=== PATIENT | female | born 2000 | race African-American/Black ===

== ENCOUNTER 2023-05-29 03:55 | Emergency (ER) | payer SELFPAY ==
[~2023-05-29] VITALS: Ht 165.1 cm; Wt 69.9 kg
[2023-05-29 04:01] VITALS: BP 117/66; PULSE 75; RESP 16; TEMP 98.5; O2SAT 99
[2023-05-29 05:01] VITALS: BP 101/62; PULSE 70; RESP 16; O2SAT 98
[2023-05-29] MEDS ORDERED: TORADOL ONE (05:11)
[2023-05-29] MEDS ORDERED: TORADOL IM STA (05:12)
== END 2023-05-29 05:20 | disposition home or self-care (01) ==
LOC: ER 03:55
DX: S90.851A Superficial foreign body, right foot, initial encounter (principal); F12.90 Cannabis use, unspecified, uncomplicated; W45.8XXA Other foreign body or object entering through skin, initial encounter; Y93.89 Activity, other specified; Y92.89 Other specified places as the place of occurrence of the external cause; Y99.8 Other external cause status
CPT/HCPCS: 99283; 96372; 73630; J1885